=== PATIENT | female | born 1990 | race Caucasian/White ===

== ENCOUNTER 2017-11-13 22:10 | Emergency (ER) | END 2017-11-14 01:25 | disposition home or self-care (01) ==

== ENCOUNTER 2019-02-13 21:32 | Emergency (ER) | payer MEDICAID, OTHER ==
[~2019-02-13] VITALS: Ht 152.4 cm; Wt 100.6 kg
[~2019-02-13 21:32] MED LIST: CEPH-443 PO; HYDR-4011 PO; NAPR-985 PO; OMEP20CA16 PO; ONDA4TAB8 PO
[2019-02-13 21:34] VITALS: BP 148/100; PULSE 82; RESP 16; Ht 152.4 cm; Wt 100.6 kg
== END 2019-02-14 02:21 | disposition left against medical advice (07) ==
LOC: FTE 21:32
DX: Z53.21 Procedure and treatment not carried out due to patient leaving prior to being seen by health care provider (principal)

== ENCOUNTER 2019-02-18 02:25 | Emergency (ER) | payer MEDICAID ==
[~2019-02-18] VITALS: Ht 152.4 cm; Wt 98.9 kg
[2019-02-18 02:27] VITALS: Ht 152.4 cm; Wt 98.9 kg
[2019-02-18] MEDS ORDERED: SOD CHLORIDE 0.9% 500 ML IV STA (02:39)
[2019-02-18] MEDS ORDERED: METOCLOPRAMIDE 10 MG INJ IV STA (02:39)
--- NOTE | 2019-02-18 02:52 | ERD ---
ER Documentation Chief Complaint Chief Complaint RUQ PAIN RADIATING TO BACK X'S 2 DAYS; HX GALSTONES HPI Patient is a 28 years old female at 19 weeks gestation presenting to the clinic with sharp right upper quadrant pain rated 10 out of 10 that is waiting to right shoulder X 4 days. Patient admits to associated nausea with NBNB emesis and fever with chills. She denies taking any OTC medication. Patient denies bloating, constipation, diarrhea, chest pain, SOB, cough, sputum production. Patient admits to history of gallstones. ROS All systems reviewed and are negative except as per history of present illness. Medications Home Meds Active Scripts Ondansetron (Ondansetron Odt) 4 Mg Tab.rapdis, 4 MG PO Q6H PRN for NAUSEA AND/OR VOMITING, #10 TAB Prov:EUSEBIO WEBER PA-C 02/18/19 Nitrofurantoin Monohyd Macrocr* (Macrobid*) 100 Mg Capsr, 100 MG PO BID for 7 Days, #14 CAP Prov:EUSEBIO WEBER PA-C 02/18/19 Hydrocodone/Acetaminophen (Goltry 5-325 Tablet) 1 Each Tablet, 1 TAB PO Q6H PRN for PAIN, #7 TAB Prov:LEANDRA BOWERS PA-C 11/14/17 Ondansetron Hcl* (Zofran*) 4 Mg Tablet, 4 MG PO Q6H for NAUSEA AND/OR VOMITING, #30 TAB Prov:LEANDRA BOWERS PA-C 11/14/17 Omeprazole* (Omeprazole*) 20 Mg Capsule.dr, 20 MG PO BID, #20 Prov:LEANDRA BOWERS PA-C 11/14/17 Naproxen* (Naprosyn*) 500 Mg Tablet, 500 MG PO BID PRN for PAIN AND/OR INFLAMMATION, #30 TAB Prov:LEANDRA BOWERS PA-C 11/14/17 Cephalexin* (Keflex*) 500 Mg Capsule, 500 MG PO QID for 7 Days, CAP Prov:LEANDRA BOWERSC 11/14/17 Allergies Allergies: Coded Allergies: No Known Allergy (Unverified , 11/01/12) PMhx/Soc Medical and Surgical Hx: pt denies Medical Hx, pt denies Surgical Hx History of Surgery: No Anesthesia Reaction: No Hx Neurological Disorder: No Hx Respiratory Disorders: No Hx Cardiac Disorders: No Hx Psychiatric Problems: No Hx Miscellaneous Medical Probl: Yes (Gallstone) Hx Alcohol Use: No Hx Substance Use: No Hx Tobacco Use: No FmHx Family History: No diabetes, No coronary disease, No other Physical Exam Vitals Vital Signs Date Temp Pulse Resp B/P (MAP) Pulse Ox O2 O2 Flow FiO2 Time Delivery Rate 02/18/19 99.4 92 16 159/81 97 02:27 (107) Physical Exam Const: No acute distress. In some mild distress. Head: Atraumatic Eyes: Normal Conjunctiva Resp: Clear to auscultation bilaterally Cardio: Regular rate and rhythm, no murmurs Abd: Soft, non distended. Normal bowel sounds. RUQ tenderness. Negative Cho sign, Rovsing sign, McBurney's point tenderness, Timothy sign, Alberto Gomez sign, mild guarding, no rebound tenderness. Skin: No petechiae or rashes Back: No midline or flank tenderness. Negative CVAT. Neur: Awake and alert Psych: Normal Mood and Affect Result Diagram: 02/18/19 0347 02/18/19 0257 Results 24 hrs Laboratory Tests Test 02/18/19 02:56 02/18/19 02:57 02/18/19 03:47 Urine Color YELLOW Urine Clarity CLEAR Urine pH 5.0 Urine Specific [place] 1.021 Urine Ketones 1+ mg/dL Urine Nitrite NEGATIVE mg/dL Urine Bilirubin NEGATIVE mg/dL Urine Urobilinogen NEGATIVE mg/dL Urine Leukocyte Esterase 1+ Gita/ul Urine Microscopic RBC 1 /HPF Urine Microscopic WBC 11 /HPF Urine Squamous Epithelial Cells FEW /HPF Urine Mucus FEW /HPF Urine Hemoglobin NEGATIVE mg/dL Urine Glucose NEGATIVE mg/dL Urine Total Protein NEGATIVE mg/dl Sodium Level 139 mmol/L Potassium Level 3.9 mmol/L Chloride Level 109 mmol/L Carbon Dioxide Level 21 mmol/L Anion Gap 9 Blood Urea Nitrogen 7 mg/dl Creatinine 0.54 mg/dl Est Glomerular Filtrat > 60 mL/min Rate mL/min Glucose Level 105 mg/dl Calcium Level 9.1 mg/dl Total Bilirubin 0.6 mg/dl Direct Bilirubin 0.00 mg/dl Indirect Bilirubin 0.6 mg/dl Aspartate Amino 20 IU/L Transf (AST/SGOT) Alanine 25 IU/L Aminotransferase (ALT/SGPT) Alkaline Phosphatase 62 IU/L Total Protein 7.6 g/dl Albumin 3.9 g/dl Globulin 3.70 g/dl Albumin/Globulin Ratio 1.05 Lipase 89 U/L White Blood Count 8.5 10^3/ul Red Blood Count 3.99 10^6/ul Hemoglobin 12.9 g/dl Hematocrit 36.5 % Mean Corpuscular Volume 91.5 fl Mean Corpuscular Hemoglobin 32.3 pg Mean Corpuscular 35.3 g/dl Hemoglobin Concent Red Cell Distribution Width 12.4 % Platelet Count 269 10^3/UL Mean Platelet Volume 10.3 fl Immature Granulocytes % 0.400 % Neutrophils % 65.4 % Lymphocytes % 24.1 % Monocytes % 7.7 % Eosinophils % 1.9 % Basophils % 0.5 % Nucleated Red Blood Cells % 0.0 /100WBC Immature Granulocytes # 0.030 10^3/ul Neutrophils # 5.5 10^3/ul Lymphocytes # 2.0 10^3/ul Monocytes # 0.7 10^3/ul Eosinophils # 0.2 10^3/ul Basophils # 0.0 10^3/ul Nucleated Red Blood Cells # 0.0 10^3/ul Current Medications Medications Dose Sig/Trinh Start Time Status Last (Trade) Ordered Route PRN Stop Time Admin Dose Reason Admin Sodium 500 ml @ Q1H STAT 02/18/19 DC 02/18/19 Chloride 500 mls/hr IV 02:39 03:24 02/18/19 03:38 10 mg ONCE STAT 02/18/19 DC 02/18/19 Metoclopramid IV 02:39 03:21 e HCl 02/18/19 02:44 (Reglan) 100 ml @ ONCE ONCE 02/18/19 DC Acetaminophen 400 mls/hr IVPB 03:00 02/18/19 03:00 650 mg ONCE ONCE 02/18/19 DC 02/18/19 Acetaminophen [place] 03:00 03:21 (Tylenol 02/18/19 03:01 Supp) Procedures/MDM Patient was seen and evaluated for right upper quadrant pain. CBC, CMP, lipase, urinalysis revealed leukocyte esterase and urine white blood cells otherwise unremarkable. Patient is experiencing UTI. right upper quadrant ultrasound revealed Prominent non mobile stone in the neck of the gallbladder. No wall thickening or pericholecystic fluid to indicate acute inflammation. 500 mL normal saline IV, then 10 mg IV, Tylenol 650 mg suppository administered in ED. low suspicion for colitis, appendicitis, sepsis, pyelonephritis. Patient is stable and ready for discharge. Follow-up with PCP and [facility]. Patient will be discharged with Melanie and Harinder. Departure Diagnosis: Primary Impression: UTI (urinary tract infection) Urinary tract infection type: site unspecified Hematuria presence: without hematuria Qualified Codes: N39.0 - Urinary tract infection, site not specified Condition: Stable Patient Instructions: Understanding Urinary Tract Infections (UTIs) Referrals: [facility] Additional Instructions: Patient advised to return to the ED immediately for new or worsening symptoms. Patient advised to follow up with primary care provider in the next 24-48 hours. Patient verbalized understanding and agrees with treatment plan and course of action. If patient has no primary care they may follow up with [facility] [address] [place] [id number] or [facility] [id number] [place] [address] or [facility] [address] [place] [address] EUSEBIO WEBER PA-C Feb 18, 2019 02:52
[2019-02-18] MEDS ORDERED: ACETAMINOPHEN 650 MG SUPP PR ONE (03:00)
[2019-02-18] MEDS ORDERED: ACETAMINOPHEN 1000MG/100ML IV 100 ML IVPB ONE (03:00)
[2019-02-18] MEDS ORDERED: NITR-58 PO (04:03)
[2019-02-18] MEDS ORDERED: ONDA4TAB14 PO (04:03)
[2019-02-18 04:53] VITALS: BP 123/70; PULSE 67; RESP 18
== END 2019-02-18 04:54 | disposition home or self-care (01) ==
LOC: FTE 02:25
DX: O23.42 Unspecified infection of urinary tract in pregnancy, second trimester (principal); Z3A.19 19 weeks gestation of pregnancy
CPT/HCPCS: 36415; 76705; 80053; 81001; 83690; 85025; 96374; J2765; J7040; Z7502; Z7610; J0131